=== PATIENT | male | born 1960 ===

== ENCOUNTER 2018-11-16 15:55 | Outpatient (REF) | payer BC, SELFPAY ==
[2018-11-16 19:03] LABS: CREATININE 0.88 mg/dL (0.70-1.30); Calculated LDL 158; Cholesterol 259 mg/dL (50-200); HDL Cholesterol 50 mg/dL (40-60); Triglyceride 259 mg/dL (30-150)
== END 2018-11-16 16:15 ==
LOC: NCHCN 15:55
PROVIDERS: Visit Provider Internal Medicine
DX: Z00.00 Encounter for general adult medical examination without abnormal findings (principal); Z13.220 Encounter for screening for lipoid disorders
CPT/HCPCS: 80061; 83721; 82565

== ENCOUNTER 2023-06-20 14:52 | Outpatient (REF) | payer BC, SELFPAY ==
[2023-06-20 19:34] LABS: Calculated LDL 170 mg/dL (<100); Cholesterol 265 mg/dL (<200); HDL Cholesterol 69 mg/dL (40-60); Triglyceride 130 mg/dL (<150)
[2023-06-23 09:34] LABS: PSA, Diagnostic 1.5 ng/mL (<=4.5)
== END 2023-06-20 14:53 | disposition home or self-care (01) ==
LOC: NCHCN 14:52
PROVIDERS: Visit Provider Internal Medicine
DX: Z00.00 Encounter for general adult medical examination without abnormal findings (principal); N40.1 Benign prostatic hyperplasia with lower urinary tract symptoms; Z13.220 Encounter for screening for lipoid disorders
CPT/HCPCS: 80061; 84153